=== PATIENT | male | born 1990 | race Asian ===

== ENCOUNTER 2023-06-27 12:16 | Emergency (ER) | payer SELFPAY | END 2023-06-27 13:48 | disposition home or self-care (01) | LOC: ERS 12:16 | DX: N48.1 Balanitis (principal) | CPT/HCPCS: 99282 ==

== ENCOUNTER 2023-07-19 14:03 | Emergency (ER) | payer SELFPAY ==
[2023-07-19] MEDS ORDERED: Ibuprofen 200 MG TAB ONE (17:39)
[2023-07-19] MEDS ORDERED: Dicyclomine 20 MG/2 ML VIAL ONE (17:39)
[2023-07-19 18:14] LABS: Bilirubin Negative (Negative); Blood, Urine Negative (Negative); CAUTI Indications for Culture Pelvic or flank pain; Clarity Turbid (Clear); Glucose, Urine (Dipstick) Normal (Negative); Ketone, Urine Negative (Negative); Leukocyte Negative Leu/uL (Negative); Nitrite Negative (Negative); Protein, Urine (Dipstick) Negative (Neg-Trace); RBC/HPF None Seen HPF (0-3); Specific Gravity, Urine 1.017 (1.002-1.036); Squamous Epithelial 0-3 HPF (0-3); WBC/HPF 0-3 HPF (0-3); pH, Urine 6.5 (5.0-9.0)
[2023-07-19 18:16] LABS: Bacteria/HPF 1+ HPF (None Seen); Urine Culture Reflex No No
== END 2023-07-19 19:23 | disposition home or self-care (01) ==
LOC: ERS 14:03
DX: R30.0 Dysuria (principal)
CPT/HCPCS: 81001; 96372; 99283